=== PATIENT | female | born 1970 | race Caucasian/White ===

== ENCOUNTER 2016-09-02 19:17 | Emergency (ER) | payer BC ==
[2016-09-02 19:38] VITALS: BP 144/91
[2016-09-02] MEDS ORDERED: predniSONE TAB* 20 MG PO ONE (20:16)
--- NOTE | 2016-09-02 20:23 | UC ---
Knee Pain HPI - HPI Summary HPI Summary: patient has hisotry of gout, started having a flare up in the left knee today, has trouble bending it. is it slightly swollen and warm to touch. denies any trauma or past injury - History of Current Complaint Chief Complaint: UCLowerExtremity Stated Complaint: LEFT THIGH & KNEE PAIN Time Seen by Provider: 09/02/16 20:07 Hx Obtained From: Patient Hx Last Menstrual Period: 2 weeks ?: No Onset/Duration: Sudden Onset, Lasting Hours Severity Initially: Severe Severity Currently: Severe Character: Aching, Stiffness, Burning Aggravating Factor(s): Movement, Weight Bearing, Stairs Alleviating Factor(s): Rest Associated Signs And Symptoms: Positive: Swelling Able to Bear Weight: Yes - Risk Factors Gout Risk Factor: Age ^ 38, HTN, Renal Disease, Obesity - Allergies/Home Medications Allergies/Adverse Reactions: Allergies Allergy/AdvReac Type Severity Reaction Status Date / Time No Known Allergies Allergy Unverified 09/02/16 19:38 PMH/Surg Hx/FS Hx/Imm Hx Previously Healthy: Yes - Surgical History Surgical History: Yes Surgery Procedure, Year, and Place: Gallbladder removed, ear and throat surgeries as a child - Family History Known Family History: Positive: Hypertension - Social History Alcohol Use: Occasionally Substance Use Type: None Smoking Status (MU): Former Smoker When Did the Patient Quit Smoking/Using Tobacco: 20+ YRS AGO Review of Systems Constitutional: Negative Skin: Negative Eyes: Negative ENT: Negative Respiratory: Negative Cardiovascular: Negative Gastrointestinal: Negative Genitourinary: Negative Motor: Negative Neurovascular: Negative Musculoskeletal: Arthralgia, Decreased ROM Neurological: Negative Psychological: Negative All Other Systems Reviewed And Are Negative: Yes Physical Exam Triage Information Reviewed: Yes Appearance: Well-Appearing, Well-Nourished, Pain Distress Vital Signs: Initial Vital Signs Temp 98.9 F 09/02/16 19:28 Pulse 79 09/02/16 19:28 Resp 20 09/02/16 19:28 BP 144/91 09/02/16 19:28 Pulse Ox 97 09/02/16 19:28 Vital Signs Reviewed: Yes Eye Exam: Normal Eyes: Positive: Conjunctiva Clear ENT: Positive: Hearing grossly normal, Pharynx normal, TMs normal Neck exam: Normal Respiratory Exam: Normal Respiratory: Positive: Decreased breath sounds Cardiovascular Exam: Normal Cardiovascular: Positive: RRR, No Murmur, Pulses Normal Abdominal Exam: Normal Abdomen Description: Positive: Nontender, No Organomegaly, Soft Bowel Sounds: Positive: Present Musculoskeletal: Positive: Strength Intact, ROM Intact, Edema @ - above patella Neurological Exam: Normal Psychological Exam: Normal Skin Exam: Normal Knee Pain Course/Dx - Course Course Of Treatment: hx obtained, exam performed ,meds reviewed, treated for gout flare up. recommend follow up with her pcp. - Differential Dx/Diagnosis Differential Diagnosis/HQI/PQRI: Cellulitis, Contusion, Fracture (Closed), Patellofemoral Syndrome, Phlebitis, Sprain, Strain Provider Diagnoses: gout of the left knee Discharge - Discharge Plan Condition: Stable Disposition: HOME Prescriptions: predniSONE TAB* [Deltasone TAB*] 20 mg PO DAILY #18 tab Patient Education Materials: Gout (ED), Low Purine Diet (ED) Additional Instructions: 1. take the medication bijan as prescribed. 2. rest the knee as much as possible. 3. Follow up with your primary doctor for further blood work and treatment.
== END 2016-09-02 20:32 | disposition home or self-care (01) ==
LOC: UCCORT 19:17
DX: M10.062 Idiopathic gout, left knee (principal); E66.9 Obesity, unspecified; Z87.891 Personal history of nicotine dependence; Z90.49 Acquired absence of other specified parts of digestive tract
CPT/HCPCS: 99212; G0463; J7512

== ENCOUNTER 2017-05-20 14:54 | Emergency (ER) | payer BC ==
--- OUTSIDE RECORDS SUMMARY | 2017-05-20 15:11 | XMS REPORT ---
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 Rebecca Sifuentes NP Primary Care Physician Unavailable Payers Type Date Identification Numbers Payment Provider Subscriber Commercial Effective: Policy Number: BS [employer] Isabella Mk 2014 [id number] PayID: [id number] [address] [address] [place] [address] Problems Description No Information Family History Date Family Member(s) Problem(s) Comments Paternal Grandmother Pancreatic Cancer age 70 Social History Type Date Description Comments Lives With Boyfriend Cigarette Use 05/11/2017 Never Smoked Cigarettes ETOH Use Occasionally consumes alcohol Allergies, Adverse Reactions, Alerts Date Description Reaction Status Severity Comments 02/23/2017 Taxol active flushing/back pain 12/09/2016 NKDA inactive Medications Medication Date Status Form Strength Qnty SIG Indications Ordering Provider Lorazepam 04/20 Active Tablets 1mg 20tab 1 by mouth s every 8 Volcko, hours as 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 needed nausea, or anxiety pre chemo Emla 01/27 Active Cream 2.5-2.5% 1unit apply over W s port prior MD Christian to chemotherap y Zofran 01/21 Active Tablets 8mg 45tab 1 by mouth W s every 6-8hr MD Christian as needed nausea Levothyroxine Active Tablets 75mcg 1 by mouth Unknown Sodium /0000 every day Hydrochlorothiazid Active Tablets 12.5mg every day Unknown e Atenolol Active Tablets 100mg 1 by mouth Unknown every day Montelukast Sodium Active Tablets 10mg Unknown Allopurinol Active Tablets 100mg once daily Unknown Cimetidine Active Tablets 200mg 1 daily Unknown Melatonin ER Active Tablets 5mg 1 daily ER Dexamethasone 02/02 Hx Tablets 4mg 50tab take 5 tabs s at bedtime Volcko, - night WEB DEVELOPER 03/17 before chemo or as directed. Benadryl 02/02 Hx Capsules 25mg 1Tabl 2 tablet by Chemo et mouth the Patients - the before 03/17 chemo cycle and the morning before chemo with the dexamethaso ne scripted Lovenox 01/12 Hx Solution 40mg/0.4M 42uni 1 sq inj. W Roney L ts every day MD Christian - post op for 03/23 Hydrocodone-Acetam 12/19 Hx Tablets 5-325mg 40tab 1-2 by Josette ryan s mouth every Volcko, - 4-6 hours WEB DEVELOPER 01/07 as needed /2016 pain after surgery Ibuprofen 12/19 Hx Tablets 600mg 40tab 1 by mouth s every 6 Volcko, - hours as WEB DEVELOPER 01/07 needed pain /2016 after surgery/pro cedure Prepopik 12/19 Hx Packet 10-3.5-12 1unit as directed mg-GM-GM s Volcko, - WEB DEVELOPER 12/25 Amoxicillin Hx Tablets 875mg 1 by mouth every 12 - hours x 10 hospital Immunizations CPT Code Status Date Vaccine Lot # [id number] Refused 12/15/2016 Influenza Virus Split Vaccine Vital Signs Date Vital Result Comment 05/11/2017 BP Systolic 136 mmHg BP Diastolic 95 mmHg Heart Rate 128 /min Respiratory Rate 16 /min Height 68 inches 5'8" Weight 260.00 lb O2 % BldC Oximetry 97 % BSA (Body Surface Area) 2.28 m2 BMI (Body Mass Index) 39.5 kg/m2 Height in cm's 172.7 cm Weight in kg's 117.936 04/20/2017 BP Systolic 144 mmHg BP Diastolic 108 mmHg Heart Rate 114 /min Respiratory Rate 16 /min Height 68 inches 5'8" Weight 260.00 lb O2 % BldC Oximetry 98 % BSA (Body Surface Area) 2.28 m2 BMI (Body Mass Index) 39.5 kg/m2 Height in cm's 172.7 cm Weight in kg's 117.936 03/24/2017 BP Systolic 150 mmHg BP Diastolic 99 mmHg Heart Rate 102 /min Respiratory Rate 16 /min Height 68 inches 5'8" Weight 267.00 lb BSA (Body Surface Area) 2.31 m2 BMI (Body Mass Index) 40.6 kg/m2 Height in cm's 172.7 cm Weight in kg's 121.111 02/23/2017 BP Systolic 144 mmHg BP Diastolic 88 mmHg Heart Rate 90 /min Respiratory Rate 16 /min Height 68 inches 5'8" Weight 266.00 lb BSA (Body Surface Area) 2.31 m2 BMI (Body Mass Index) 40.4 kg/m2 Height in cm's 172.7 cm Weight in kg's 120.658 02/02/2017 BP Systolic 146 mmHg BP Diastolic 89 mmHg Heart Rate 86 /min Respiratory Rate 16 /min Height 68 inches 5'8" Weight 267.00 lb O2 % BldC Oximetry 99 % BSA (Body Surface Area) 2.31 m2 BMI (Body Mass Index) 40.6 kg/m2 Height in cm's 172.7 cm Weight in kg's 121.111 01/21/2017 Respiratory Rate 16 /min Height 68 inches 5'8" Weight 264.00 lb BSA (Body Surface Area) 2.30 m2 BMI (Body Mass Index) 40.1 kg/m2 Height in cm's 172.7 cm Weight in kg's 119.750 01/12/2017 BP Systolic 150 mmHg BP Diastolic 101 mmHg Heart Rate 72 /min Respiratory Rate 16 /min Height 68 inches 5'8" Weight 266.00 lb BSA (Body Surface Area) 2.31 m2 BMI (Body Mass Index) 40.4 kg/m2 Height in cm's 172.7 cm Weight in kg's 120.658 12/15/2016 BP Systolic 145 mmHg BP Diastolic 99 mmHg Heart Rate 126 /min Respiratory Rate 16 /min Height 68 inches 5'8" Weight 274.00 lb BSA (Body Surface Area) 2.34 m2 BMI (Body Mass Index) 41.7 kg/m2 Height in cm's 172.7 cm Weight in kg's 124.286 Results Description No Information Procedures Date CPT Code Description Status 04/20/2017 28501 Chemo Admin Sequential Ea Addl HR Drug W/29385 Completed 04/20/2017 35205 Chemo Admin IV Initial Up To 1 HR /Single Drug Completed 04/20/2017 56656 IV Push Ea Addl Subsequent Completed 04/20/2017 07214 IV Hydration Each Addl Hour (Intervals Of Greater Than Completed 30 Min) 03/24/2017 47012 Chemo Admin Sequential Ea Addl HR Drug W/75556 Completed 03/24/2017 93240 Chemo Admin IV Initial Up To 1 HR /Single Drug Completed 03/24/2017 30507 IV Push Ea Addl Subsequent Completed 03/24/2017 64062 IV Hydration Each Addl Hour (Intervals Of Greater Than Completed 30 Min) 02/23/2017 21385 IV Hydration Each Addl Hour (Intervals Of Greater Than Completed 30 Min) 02/23/2017 46011 IV Push Ea Addl Subsequent Completed 02/23/2017 53274 Chemo Admin IV Initial Up To 1 HR /Single Drug Completed 02/23/2017 06058 Chemo Admin Sequential Ea Addl HR Drug W/99881 Completed 02/02/2017 33804 Chemo Admin Sequential Ea Addl HR Drug W/13656 Completed 02/02/2017 53113 Chemo Admin IV Each Addl HR Completed 02/02/2017 72062 Chemo Admin IV Initial Up To 1 HR /Single Drug Completed 02/02/2017 28594 IV Push Ea Addl Subsequent Completed 02/02/2017 13858 IV Hydration Each Addl Hour (Intervals Of Greater Than Completed 30 Min) 12/30/2016 73238 Bilateral Salpingo Oophorectomy W/Omentectomy,Abdo Completed Hyst/Rad Dissc Encounters Type Date Location Provider CPT E/M Dx Office Visit 05/11/2017 10:45a [facility] [address] C56.1 pc C56.2 C78.6 C78.4 F06.4 Z01.818 Z79.899 Z51.11 Office Visit 04/20/2017 10:45a [facility], Josette Singh, WEB DEVELOPER [address] C56.1 C56.2 C78.6 C78.4 F06.4 Z01.818 Z79.899 Z51.11 Office Visit 03/24/2017 9:45a [facility], Josette Singh, WEB DEVELOPER [address] C56.1 C56.2 C78.6 C78.4 N95.1 Z01.818 Z79.899 Z51.11 Office Visit 02/23/2017 8:45a [facility] [place] [address] C56.1 C56.2 C78.6 C78.4 Z01.818 Office Visit 02/02/2017 8:45a [facility], [place] [address] C56.1 C56.2 C78.6 C78.4 Z01.818 Z79.899 Z51.11 Office Visit 01/12/2017 10:15a [facility] [place] [address] C56.1 C56.2 C78.6 C78.4 Office Visit 12/15/2016 11:00a [facility] [place] [address] N87.9 Plan of Care 05/11/2017 - Josette Singh, NPC56.1 Malignant neoplasm of right ovaryComments: Tolerated chemo better. JANE on exam with good response in CA125. Will proceed with next cycle. Orders written and chemo administered. Continue to monitor labs closely.C56.2 Malignant neoplasm of left xlkqaQ48.6 Secondary malignant neoplasm of retroperiton and awxdfvgnlkK79.4 Secondary malignant neoplasm of small ndafsydgpX67.4 Anxiety disorder due to known physiological conditionComments:Oral Ativan helped anticipatory anxiety significantly.Z01.818 Encounter for other preprocedural ietwmkztmsjE15.899 Other fpc (current) drug deaqjebK92.11 Encounter for antineoplastic chemotherapy
[2017-05-20 15:15] VITALS: BP 116/67
--- NOTE | 2017-05-20 16:38 | UC ---
UC General HPI - HPI Summary HPI Summary: "sinus infection"-describes as sinus pain, pressure and congestion with thick drainage for 4 days. had chemo on thursday. was tx for sinus infection with amoxicillin a month ago as well. no fever. notes post nasal drip causing a sore throat and ears to plug. - History of Current Complaint Chief Complaint: UCRespiratory Stated Complaint: SINUS (CHEMO PATIENT) Time Seen by Provider: 05/20/17 16:25 Hx Obtained From: Patient Hx Last Menstrual Period: 2 weeks Onset/Duration: Gradual Onset Timing: Constant Pain Intensity: 5 Aggravating: nothing Alleviating: nothing Associated Signs & Symptoms: Negative: Fever - Allergy/Home Medications Allergies/Adverse Reactions: Allergies Allergy/AdvReac Type Severity Reaction Status Date / Time No Known Allergies Allergy Verified 05/20/17 15:15 Home Medications: Home Medications Allopurinol TAB* [Zyloprim 100 MG TAB*] 100 mg PO DAILY 05/20/17 [History Confirmed 05/20/17] PMH/Surg Hx/FS Hx/Imm Hx - Additional Past Medical History Additional PMH: sinusitis, gout, ovarian CA Endocrine History: Hypothyroidism Cardiovascular History: Hypertension GI/ History: Gastroesophageal Reflux - Surgical History Surgical History: Yes Surgery Procedure, Year, and Place: Gallbladder removed, ear and throat surgeries as a child - Family History Known Family History: Positive: Hypertension - Social History Occupation: Employed Full-time Lives: With Family Alcohol Use: Occasionally Substance Use Type: None Smoking Status (MU): Former Smoker When Did the Patient Quit Smoking/Using Tobacco: 20+ YRS AGO - Immunization History Vaccination Up to Date: Yes Review of Systems Constitutional: Negative Skin: Negative Eyes: Negative ENT: Sore Throat, Nasal Discharge, Sinus Congestion, Sinus Pain/Tenderness Respiratory: Negative Cardiovascular: Negative Gastrointestinal: Negative Genitourinary: Negative Motor: Negative Neurovascular: Negative Musculoskeletal: Negative Neurological: Negative Psychological: Negative Is Patient Immunocompromised?: Yes All Other Systems Reviewed And Are Negative: Yes Physical Exam Triage Information Reviewed: Yes Appearance: Well-Appearing Vital Signs: Initial Vital Signs Temp 98.8 F 05/20/17 15:08 Pulse 100 05/20/17 15:08 Resp 17 05/20/17 15:08 BP 116/67 05/20/17 15:08 Pulse Ox 99 05/20/17 15:08 Vital Signs Reviewed: Yes Eyes: Positive: Conjunctiva Clear ENT: Positive: Pharynx normal, Nasal congestion, TMs normal, Sinus tenderness Neck: Positive: Supple, Nontender, No Lymphadenopathy Respiratory: Positive: Lungs clear, Normal breath sounds, No respiratory distress Cardiovascular: Positive: RRR, No Murmur, Pulses Normal Abdomen Description: Positive: Nontender, No Organomegaly, Soft Bowel Sounds: Positive: Present Musculoskeletal: Positive: ROM Intact Neurological: Positive: Alert Psychological: Positive: Normal Response To Family, Age Appropriate Behavior Skin Exam: Normal Course/Dx - Course Course Of Treatment: given tx with amoxicillin last moth, will tx with doxycycline. pt advised to start probiotic as well. - Differential Dx - Multi-Symptom Provider Diagnoses: sinusitis Discharge - Discharge Plan Condition: Stable Disposition: HOME Prescriptions: DOXYcycline CAP(*) [DOXYcycline 100MG CAP(*)] 100 mg PO BID 10 Days #20 cap Patient Education Materials: Sinusitis (ED) Forms: *Work Release Referrals: Bear ABURTOPRebecca [Primary Care Provider] - 5 Days Additional Instructions: CALL YOUR ONCOLOGIST TOMORROW TO ADVISED OF DIAGNOSIS AND TREATMENT
== END 2017-05-20 16:43 | disposition home or self-care (01) ==
LOC: UCCORT 14:54
DX: J32.9 Chronic sinusitis, unspecified (principal); Z87.891 Personal history of nicotine dependence; Z85.43 Personal history of malignant neoplasm of ovary; E03.9 Hypothyroidism, unspecified; I10 Essential (primary) hypertension; K21.9 Gastro-esophageal reflux disease without esophagitis
CPT/HCPCS: 99212; G0463

== ENCOUNTER 2017-06-22 07:00 | Emergency (ER) | payer BC ==
--- OUTSIDE RECORDS SUMMARY | 2017-06-22 07:12 | XMS REPORT ---
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 Rebecca Sifuentes NP Primary Care Physician Unavailable Payers Type Date Identification Numbers Payment Provider Subscriber Commercial Effective: Policy Number: BS [employer] Isabella Mk 2014 [id number] PayID: [id number] [address] [address] [place] [address] Problems Description No Information Family History Date Family Member(s) Problem(s) Comments Paternal Grandmother Pancreatic Cancer age 70 Social History Type Date Description Comments Lives With Boyfriend Cigarette Use 06/01/2017 Never Smoked Cigarettes ETOH Use Occasionally consumes alcohol Allergies, Adverse Reactions, Alerts Date Description Reaction Status Severity Comments 02/23/2017 Taxol active flushing/back pain 12/09/2016 NKDA inactive Medications Medication Date Status Form Strength Qnty SIG Indications Ordering Provider Lorazepam 04/20 Active Tablets 1mg 20tab 1 by mouth s every 8 Volcko, hours 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 Benadryl [...] s mouth every Volcko, - 4-6 hours WELCOME CENTER AGENT 01/07 as needed /2016 pain after surgery Ibuprofen 12/19 Hx Tablets 600mg 40tab 1 by mouth s every 6 Volcko, - hours as WELCOME CENTER AGENT 01/07 needed pain /2016 after surgery/pro cedure Prepopik 12/19 Hx Packet 10-3.5-12 1unit as directed mg-GM-GM s Volcko, - WELCOME CENTER AGENT 12/25 Amoxicillin Hx Tablets 875mg 1 by mouth every 12 - hours x 10 hospital Immunizations CPT Code Status Date Vaccine Lot # [id number] Refused 12/15/2016 Influenza Virus Split Vaccine Vital Signs Date Vital Result Comment 06/01/2017 BP Systolic 137 mmHg BP Diastolic 78 mmHg Heart Rate 86 /min Respiratory Rate 16 /min Height 68 inches 5'8" Weight 257.00 lb O2 % BldC Oximetry 99 % BSA (Body Surface Area) 2.27 m2 BMI (Body Mass Index) 39.1 kg/m2 Height in cm's 172.7 cm Weight in kg's 116.575 05/11/2017 BP Systolic 136 mmHg BP Diastolic [...] 172.7 cm Weight in kg's 124.286 Results Test Date Test Result H/L Range Note CBC W/Auto Differential 05/29/2017 Hemoglobin Blood <pending> Hematocrit <pending> MCV (Corpuscular Volume) <pending> MCH (Corpuscular Hemoglobin) <pending> MCHC (Corpuscular Hemog Conc) <pending> RDW <pending> Platelet Count Blood Auto CNT <pending> MPV <pending> Neutrophils <pending> Fluid Bands <pending> Fluid Lymphocytes <pending> Monocytes <pending> Fluid Body Eosinophils <pending> Basophils % <pending> Absolute Basophils <pending> Absolute Eosinophils <pending> Absolute Lymphocytes <pending> Absolute Monocytes <pending> Absolute Neutrophils Auto CNT <pending> Comprehensive Metabolic 05/29/2017 Albumin <pending> Alt <pending> Calcium <pending> Carbon Dioxide <pending> Chloride <pending> Creatinine <pending> Alkaline Phosphatase <pending> Potassium <pending> Protein Total <pending> Sodium <pending> Ast <pending> BUN <pending> Laboratory test finding 05/29/2017 CA 125 <pending> Procedures Date CPT Code Description Status 05/11/2017 75113 Chemo Admin Sequential Ea Addl HR Drug W/96810 Completed 05/11/2017 08631 Chemo Admin IV Initial Up To 1 HR /Single Drug Completed 05/11/2017 90423 IV Push Ea Addl Subsequent Completed 05/11/2017 04374 IV Hydration Each Addl Hour (Intervals Of Greater Than Completed 30 Min) 04/20/2017 44038 Chemo Admin Sequential Ea Addl HR Drug W/11352 Completed 04/20/2017 77918 Chemo Admin IV Initial Up To 1 HR /Single Drug Completed 04/20/2017 33206 IV Push Ea Addl Subsequent Completed 04/20/2017 26376 IV Hydration Each Addl Hour (Intervals Of Greater Than Completed 30 Min) 03/24/2017 50548 IV Hydration Each Addl Hour (Intervals Of Greater Than Completed 30 Min) 03/24/2017 38145 IV Push Ea Addl Subsequent Completed 03/24/2017 21426 Chemo Admin IV Initial Up To 1 HR /Single Drug Completed 03/24/2017 02136 Chemo Admin Sequential Ea Addl HR Drug W/19651 Completed 02/23/2017 50431 Chemo Admin Sequential Ea Addl HR Drug W/11694 Completed 02/23/2017 44663 Chemo Admin IV Initial Up To 1 HR /Single Drug Completed 02/23/2017 95636 IV Push Ea Addl Subsequent Completed 02/23/2017 41966 IV Hydration Each Addl Hour (Intervals Of Greater Than Completed 30 Min) 02/02/2017 40375 Chemo Admin Sequential Ea Addl HR Drug W/78225 Completed 02/02/2017 37951 Chemo Admin IV Each Addl HR Completed 02/02/2017 99117 Chemo Admin IV Initial Up To 1 HR /Single Drug Completed 02/02/2017 33251 IV Push Ea Addl Subsequent Completed 02/02/2017 97725 IV Hydration Each Addl Hour (Intervals Of Greater Than Completed 30 Min) 12/30/2016 51887 Bilateral Salpingo Oophorectomy W/Omentectomy,Abdo Completed Hyst/Rad Dissc Encounters Type Date Location Provider CPT E/M Dx Office Visit 06/01/2017 9:45a [facility] [place] [address] C56.1 pc C56.2 C78.6 C78.4 Z01.818 Z79.899 Z51.11 Office Visit 05/11/2017 10:45a [facility] [place] [address] C56.1 C56.2 C78.6 C78.4 F06.4 Z01.818 Z79.899 Z51.11 Office Visit 04/20/2017 10:45a [facility] [place] [address] C56.1 C56.2 C78.6 C78.4 F06.4 Z01.818 Z79.899 Z51.11 Office Visit 03/24/2017 9:45a [facility] [place] [address] C56.1 C56.2 C78.6 C78.4 N95.1 Z01.818 Z79.899 Z51.11 Office Visit 02/23/2017 8:45a [facility] [place] [address] C56.1 C56.2 C78.6 C78.4 Z01.818 Office Visit 02/02/2017 8:45a [facility] [place] [address] C56.1 C56.2 C78.6 C78.4 Z01.818 Z79.899 Z51.11 Office Visit 01/12/2017 10:15a [facility] [place] [address] C56.1 C56.2 C78.6 C78.4 Office Visit 12/15/2016 11:00a [facility] [place] [address] N87.9 Plan of Care 06/01/2017 - Josette Singh NPC56.1 Malignant neoplasm of right ovaryComments: Today is her last treatment. She will receive a CT scan after today's appointment followed by an appointment with Dr. Gonzales to discuss results. JANE on exam with good response in CA125. Will proceed with next cycle. Orders written and chemo administered. Continue to monitor labs closely.C56.2 Malignant neoplasm of left jkskkG64.6 Secondary malignant neoplasm of retroperiton and cjtwkckulbM09.4 Secondary malignant neoplasm of small hmgopdrbaV83.818 Encounter for other preprocedural cgmshzpcfjcN22.899 Other fdc (current) drug xpsuqglA12.11 Encounter for antineoplastic chemotherapy
[2017-06-22 07:26] VITALS: BP 136/78
--- NOTE | 2017-06-22 08:00 | UC ---
Knee Pain HPI - HPI Summary HPI Summary: LEFT KNEE PAIN X 1 WEEK + SWELLING, ERYTHEMA, WARM , NO KNOWN INJURY , HX OF GOUT - History of Current Complaint Chief Complaint: UCLowerExtremity Stated Complaint: (L) KNEE COMPLAINT Time Seen by Provider: 06/22/17 07:32 Hx Obtained From: Patient Hx Last Menstrual Period: 2 weeks Onset/Duration: Gradual Onset, Lasting Days - 7, Still Present Severity Initially: Moderate Severity Currently: Moderate Pain Intensity: 2 Pain Scale Used: 0-10 Numeric Character: Aching, Throbbing Aggravating Factor(s): Movement, Weight Bearing, Stairs Alleviating Factor(s): Rest Associated Signs And Symptoms: Positive: Swelling, Redness, Weakness. Negative : Fever, Numbness, Tingling Able to Bear Weight: Yes - Allergies/Home Medications Allergies/Adverse Reactions: Allergies Allergy/AdvReac Type Severity Reaction Status Date / Time ?chemo med. Allergy Unknown kidney pain Uncoded 06/22/17 07:15 PMH/Surg Hx/FS Hx/Imm Hx - Additional Past Medical History Additional PMH: GOUT Cardiovascular History: Hypertension Respiratory History: Asthma GI/ History: Gastroesophageal Reflux Cancer History: Other - OVERIAN CA Other Cancer History: OVERIAN CA - Surgical History Surgical History: Yes Surgery Procedure, Year, and Place: Gallbladder removed, ear and throat surgeries as a child. COMPLETE HYSTERECTOMY - Family History Known Family History: Positive: Hypertension - Social History Alcohol Use: Occasionally Substance Use Type: None Smoking Status (MU): Former Smoker When Did the Patient Quit Smoking/Using Tobacco: 20+ YRS AGO - Immunization History Vaccination Up to Date: Yes Review of Systems Constitutional: Negative Skin: Negative Eyes: Negative ENT: Negative Respiratory: Negative Cardiovascular: Negative Gastrointestinal: Negative Is Patient Immunocompromised?: No All Other Systems Reviewed And Are Negative: Yes Physical Exam Triage Information Reviewed: Yes Appearance: Well-Appearing, No Pain Distress, Well-Nourished Vital Signs: Initial Vital Signs Temp 97.2 F 06/22/17 07:18 Pulse 86 06/22/17 07:18 Resp 18 06/22/17 07:18 BP 136/78 06/22/17 07:18 Pulse Ox 98 06/22/17 07:18 Vital Signs Reviewed: Yes Eye Exam: Normal Eyes: Positive: Conjunctiva Clear ENT: Positive: Normal ENT inspection, Hearing grossly normal, Pharynx normal Neck: Positive: Supple, Nontender, No Lymphadenopathy Respiratory: Positive: Chest non-tender, Lungs clear, Normal breath sounds Cardiovascular: Positive: RRR, No Murmur, Pulses Normal Musculoskeletal: Positive: Other: - LEFT KNEE: MILD SWELLING, MILD ERYTHEMA, DIFFUSE TENDERNESS, LIMITID ROM ON FLEXION AND EXTENSION DUE TO PAIN AND SWELLING Knee Pain Course/Dx - Differential Dx/Diagnosis Provider Diagnoses: GOUT LEFT KNEE Discharge - Sign-Out/Discharge Documenting (check all that apply): Discharge - Discharge Plan Condition: Stable Disposition: HOME Prescriptions: Indomethacin CAP* [Indocin CAP*] 50 mg PO TID PRN #15 cap PRN Reason: Pain Patient Education Materials: Gout (ED) Forms: *Work Release Referrals: Bear KAHN BATH MIXERRebecca [Primary Care Provider] - 7 Days - Billing Disposition and Condition Condition: STABLE Disposition: HOME
== END 2017-06-22 07:43 | disposition home or self-care (01) ==
LOC: UCCORT 07:00
DX: M10.9 Gout, unspecified (principal)
CPT/HCPCS: 99212; G0463

== ENCOUNTER 2019-04-30 11:20 | Emergency (ER) | payer BC ==
[2019-04-30 12:22] VITALS: BP 118/75
[2019-04-30] MEDS ORDERED: Ibuprofen TAB* 600 MG PO ONE (12:34)
[2019-04-30 12:36] LABS: Influenza A Molecular POSITIVE (Negative)
--- NOTE | 2019-04-30 12:37 | UC ---
FLU HPI - HPI Summary HPI Summary: 48-year-old woman comes in with a chief complaint of influenza-like illness since yesterday. She has Fevers chills body aches headache. Has not taken any [id number]-sla-[id number] medications today. Her has influenza. - History of Current Complaint Chief Complaint: UCGeneralIllness Stated Complaint: SINUS HEADACHE ACHY COUGH Time Seen by Provider: 04/30/19 12:19 Hx Last Menstrual Period: 2 weeks Pain Intensity: 5 - Allergy/Home Medications Allergies/Adverse Reactions: Allergies Allergy/AdvReac Type Severity Reaction Status Date / Time ?chemo med. Allergy Unknown kidney pain Uncoded 04/30/19 12:25 Home Medications: Home Medications PARoxetine HCL TAB* [Paxil TAB*] 10 mg PO DAILY 04/30/19 [History Confirmed 11/09] PMH/Surg Hx/FS Hx/Imm Hx Previously Healthy: Yes - gout Endocrine History: Hypothyroidism Cardiovascular History: Hypertension Respiratory History: Asthma - Surgical History Surgical History: Yes Surgery Procedure, Year, and Place: Gallbladder removed, ear and throat surgeries as a child. COMPLETE HYSTERECTOMY. cyst removed from back - Family History Known Family History: Positive: Hypertension - Social History Alcohol Use: Occasionally Substance Use Type: None Smoking Status (MU): Former Smoker When Did the Patient Quit Smoking/Using Tobacco: 20+ YRS AGO - Immunization History Vaccination Up to Date: Yes Review of Systems All Other Systems Reviewed And Are Negative: Yes Constitutional: Positive: Fever, Chills, Other - see hpi Skin: Positive: Negative Eyes: Positive: Negative ENT: Positive: Sore Throat, Nasal Discharge, Sinus Congestion Respiratory: Positive: Cough Cardiovascular: Positive: Negative Gastrointestinal: Positive: Negative Neurovascular: Positive: Negative Musculoskeletal: Positive: Myalgia Neurological: Positive: Headache Psychological: Positive: Negative Is Patient Immunocompromised?: No Physical Exam Triage Information Reviewed: Yes Appearance: No Pain Distress, Well-Nourished, Ill-Appearing - mild Vital Signs: Initial Vital Signs Temp 100.5 F 04/30/19 12:17 Pulse 104 04/30/19 12:17 Resp 20 04/30/19 12:17 BP 118/75 04/30/19 12:17 Pulse Ox 98 04/30/19 12:17 Vital Signs Reviewed: Yes Eye Exam: Normal Eyes: Positive: Conjunctiva Clear ENT: Positive: Pharyngeal erythema, Nasal congestion, Nasal drainage, TMs normal Neck: Positive: Supple Respiratory: Positive: Lungs clear, Normal breath sounds, No respiratory distress Cardiovascular: Positive: RRR Musculoskeletal: Positive: Strength Intact, ROM Intact Neurological: Positive: Alert, Muscle Tone Normal Psychological: Positive: Normal Response To Family, Age Appropriate Behavior Skin Exam: Normal Flu Course/Dx - Differential Dx/Diagnosis Provider Diagnosis: Influenza Discharge ED - Sign-Out/Discharge Documenting (check all that apply): Patient Departure All imaging exams completed and their final reports reviewed: No Studies - Discharge Plan Condition: Stable Disposition: HOME Prescriptions: Oseltamivir CAP* [Tamiflu CAP*] 75 mg PO BID #10 cap Patient Education Materials: Influenza (ED) Forms: *Work Release Referrals: Sonja Jones [Primary Care Provider] - Additional Instructions: FOLLOW UP WITH YOUR DOCTOR IF NOT COMPLETELY IMPROVED. GET REEVALUATED SOONER IF NOT IMPROVING OR WORSE OR ANY QUESTIONS OR CONCERNS. - Billing Disposition and Condition Condition: STABLE Disposition: Home
== END 2019-04-30 12:55 | disposition home or self-care (01) ==
LOC: UCCORT 11:20
DX: J11.1 Influenza due to unidentified influenza virus with other respiratory manifestations (principal); I10 Essential (primary) hypertension; J45.909 Unspecified asthma, uncomplicated; Z87.891 Personal history of nicotine dependence; Z88.8 Allergy status to other drugs, medicaments and biological substances
CPT/HCPCS: 99212; A9270-GY; G0463